=== PATIENT | male | born 1945 | race Caucasian/White ===

== ENCOUNTER → 2023-12-10 11:57 | Outpatient (REF) | payer MEDICARE, SELFPAY ==
[2023-12-10 12:35] LABS: Hematocrit 34.8 % (39.0-52.0); Hemoglobin 11.9 g/dL (13.0-18.0); Mean Corp Hgb Conc. 34.2 g/dL (33.0-37.0); Mean Corpuscular Hgb 30.6 pg (27.0-31.0); Mean Corpuscular Volume 89.5 fL (80.0-94.0); Mean Platelet Volume 10.6 fL (7.4-10.4); Platelet Count 222 10^3/uL (130-400); Red Blood Cell Count 3.89 10^6/uL (4.70-6.10); Red Cell Dist. Width 13.1 % (11.5-14.5)
[2023-12-10 13:08] LABS: ALT (SGPT) 31 U/L (0-50); AST (SGOT) 32 U/L (17-59); Albumin 3.3 g/dl (3.5-5.0); Alkaline Phosphatase 66 U/L (38-126); Blood Urea Nitrogen 19 mg/dl (9-20); Calcium 8.9 mg/dl (8.4-10.2); Carbon Dioxide 27 mmol/L (22-30); Chloride 104 mmol/L (98-107); Glucose 99 mg/dl (70-99); HDL Cholesterol 46 mg/dl; LDL Cholesterol, Calculated 56 mg/dl; Potassium 4.3 mmol/L (3.5-5.1); Sodium 137 mmol/L (135-145); Total Bilirubin 0.5 mg/dl (0.2-1.3); Total Cholesterol 113 mg/dl (50-199); Total Protein 5.9 g/dl (6.3-8.2); Triglyceride 57 mg/dl (10-149); Very Low Density Lipoprotein 11 mg/dl (0-30); eGFR > 60.00
[2023-12-10 13:20] LABS: Glycohemoglobin (HgbA1c) 5.7 % (4.0-5.6)
[2023-12-10 13:37] LABS: TSH 2.48 uIU/ml (0.47-4.68)
== END ==
LOC: OLABP 11:57
PROVIDERS: ATTENDING PHYSICIAN Internal Medicine
DX: I48.92 Unspecified atrial flutter (principal); F03.90 Unspecified dementia, unspecified severity, without behavioral disturbance, psychotic disturbance, mood disturbance, and anxiety; I10 Essential (primary) hypertension; E78.5 Hyperlipidemia, unspecified; R73.01 Impaired fasting glucose
CPT/HCPCS: 36415; 80053; 80061; 83036; 84443; 85027

== ENCOUNTER → 2024-03-10 10:59 | Outpatient (REF) | payer MEDICARE, SELFPAY ==
[2024-03-10 11:48] LABS: Hematocrit 37.2 % (39.0-52.0); Hemoglobin 12.2 g/dL (13.0-18.0); Mean Corp Hgb Conc. 32.8 g/dL (33.0-37.0); Mean Corpuscular Hgb 30.5 pg (27.0-31.0); Mean Platelet Volume 10.5 fL (7.4-10.4); Platelet Count 218 10^3/uL (130-400); Red Cell Dist. Width 13.1 % (11.5-14.5); White Blood Cell Count 5.3 10^3/uL (4.8-10.8)
== END ==
LOC: OLABP 10:59
PROVIDERS: ATTENDING PHYSICIAN Family Medicine
DX: E78.00 Pure hypercholesterolemia, unspecified (principal); E55.9 Vitamin D deficiency, unspecified; G30.1 Alzheimer's disease with late onset; R73.01 Impaired fasting glucose; F02.80 Dementia in other diseases classified elsewhere, unspecified severity, without behavioral disturbance, psychotic disturbance, mood disturbance, and anxiety; C61 Malignant neoplasm of prostate; I10 Essential (primary) hypertension; D64.9 Anemia, unspecified
CPT/HCPCS: 36415; 85027

== ENCOUNTER → 2024-04-07 09:40 | Outpatient (REF) | payer MEDICARE, SELFPAY ==
[2024-04-07 14:21] LABS: % Basophils 1.8 % (0-2); % Eosinophils 11.4 % (0-6); % Immature Granulocytes 0.2 % (0-0.5); % Lymphocytes 32.7 % (20.5-51.1); % Monocytes 13.9 % (1.7-9.3); Absolute Basophils 0.1 10^3/uL (0-0.2); Absolute Eosinophils 0.5 10^3/uL (0-0.7); Absolute Lymphocytes 1.4 10^3/uL (1.2-3.4); Absolute Monocytes 0.6 10^3/uL (0.1-0.6); Absolute Neutrophils 1.8 10^3/uL (1.4-6.5); Hematocrit 34.4 % (39.0-52.0); Hemoglobin 11.6 g/dL (13.0-18.0); Mean Corp Hgb Conc. 33.7 g/dL (33.0-37.0); Mean Corpuscular Hgb 31.3 pg (27.0-31.0); Mean Corpuscular Volume 92.7 fL (80.0-94.0); Mean Platelet Volume 10.5 fL (7.4-10.4); Nucleated Red Blood Cells % 0 % (-); Platelet Count 222 10^3/uL (130-400); Red Blood Cell Count 3.71 10^6/uL (4.70-6.10); Red Cell Dist. Width 13.7 % (11.5-14.5); White Blood Cell Count 4.4 10^3/uL (4.8-10.8)
[2024-04-07 14:33] LABS: ALT (SGPT) 20 U/L (0-50); AST (SGOT) 25 U/L (17-59); Albumin 3.4 g/dl (3.5-5.0); Alkaline Phosphatase 57 U/L (38-126); Blood Urea Nitrogen 18 mg/dl (9-20); Calcium 8.7 mg/dl (8.4-10.2); Carbon Dioxide 26 mmol/L (22-30); Chloride 107 mmol/L (98-107); Glucose 129 mg/dl (70-99); Sodium 139 mmol/L (135-145); Total Bilirubin 0.4 mg/dl (0.2-1.3); Total Protein 5.9 g/dl (6.3-8.2); eGFR > 60.00
[2024-04-07 14:35] LABS: C-Reactive Protein < 5.00 mg/L (0.0-10.00)
[2024-04-07 14:52] LABS: Vitamin D, 25-OH*** 37.1 ng/mL (30-80)
[2024-04-07 15:06] LABS: PSA, Total - Diagnostic 4.11 ng/ml (0.0-4.0)
[2024-04-07 15:28] LABS: Potassium 4.2 mmol/L (3.5-5.1)
[2024-04-07 15:51] LABS: Erythrocyte Sed Rate 12 mm/hour (0-20)
[2024-04-07 16:23] LABS: Vitamin B12 399 pg/ml (239-931)
[2024-04-09 15:58] LABS: Lyme Antibody Screen, EIA Presump. Positive (Negative); Rheumatoid Agglutinin Less Than 10 IU (<10 IU)
[2024-04-10 01:35] LABS: ANA, IgG Reflex to HEp-2 None Detected (None Detected)
== END ==
LOC: OLABPG 09:40
PROVIDERS: ATTENDING PHYSICIAN Family Medicine
DX: E55.9 Vitamin D deficiency, unspecified (principal); C61 Malignant neoplasm of prostate; E53.8 Deficiency of other specified B group vitamins
CPT/HCPCS: 80053; 82306; 82607; 84153; 85025; 85652; 86038; 86140; 86430; 86617; 86618

== ENCOUNTER → 2024-04-10 16:47 | Outpatient (REF) | payer MEDICARE, SELFPAY | LOC: RAD 16:47 | PROVIDERS: ATTENDING PHYSICIAN Family Medicine | DX: R06.2 Wheezing (principal); M54.50 Low back pain, unspecified; C61 Malignant neoplasm of prostate; M25.511 Pain in right shoulder | CPT/HCPCS: 71046; 72110; 73030 ==

== ENCOUNTER → 2024-07-13 12:08 | Outpatient (REF) | payer MEDICARE, SELFPAY | LOC: OLABPG 12:08 | PROVIDERS: ATTENDING PHYSICIAN Family Medicine | DX: R36.9 Urethral discharge, unspecified (principal) | CPT/HCPCS: 87086; 87491; 87591 ==

== ENCOUNTER 2024-07-30 15:50 | Observation (INO) | payer MEDICARE, SELFPAY ==
[2024-07-30 12:26] VITALS: BP 153/52
--- NOTE | 2024-07-30 12:34 | ED.GENMED ---
History of Present Illness
<Tony Franklin PA-C - Last Filed: 07/30/24 15:07>
General
Chief Complaint: Change in Mental Status
Source: patient
Exam Limitations: none
Time Seen by Provider: 07/30/24 12:27
History of Present Illness
History of Present Illness:
78-year-old male with history of dementia from nursing facility presents from nursing facility with complaints of change of cognitive baseline. He seems more confused than usual. Seems more weak than usual. Patient cannot provide any valuable
history. Were told he was somewhat combative at the facility. No other complaints
Past History
<OTONIEL Sanchez Last Filed: 07/30/24 15:07>
Past History
ED Past Medical History: HTN, Hypercholesterolemia and Other (Kidney stones, Kidney lesion)
ED Past Surgical History: None
Social History
Tobacco: Former smoker
Alcohol: Occasional
Drug: None
Personal:
Living: with family
Employment: Retired
Family History
Family History: Other (Noncontributory)
Phy Exam
<OTONIEL Sanchez Last Filed: 07/30/24 15:07>
Physical Exam
Physical Exam:
General: Well-appearing male no acute respiratory distress
HEENT: Normocephalic atraumatic mucous moist face is symmetric
Heart: Regular rate and rhythm no murmurs
Lungs: Clear no wheeze
Abdomen is soft nontender nondistended
Neurologic exam: Alert and oriented to person only follows commands symmetric this to both legs. No drift on exam to the upper extremities.
Extremities: No cyanosis or edema
Skin: Warm no rash
Course
<OTONIEL Sanchez Last Filed: 07/30/24 15:07>
Orders/Labs/Results
Orders:
Orders
07/30/24 12:33
CR Chest - 2 Views Urgent
Comment:
Reason For Exam: weakness
07/30/24 12:42
COVID-19 Antigen Urgent
Source: Nasal Swab
Complete Blood Count/With Diff Urgent
Urinalysis Reflex To Culture Urgent
Date Specimen was Collected: 07/30/24
Time Specimen was Collected: 12:40
Influenza A+B Rapid Molecular Urgent
[facility]YR[facility] Source: Nasal Swab
Specimen Description:
07/30/24 13:04
CT Head W/o Iv Contrast Urgent
Comment:
Reason For Exam: confusion
07/30/24 13:24
Electrocardiogram (*1) Urgent
Reason for Study: Chest Pain
EKG- Treatment ONCE
07/30/24 13:30
Comprehensive Metabolic Panel Urgent
Troponin I Urgent
07/30/24 15:01
0.9% Sodium Chloride 1000 ml [Nss] 1,000 ml IV BOLUS
Abnormal Lab Results
07/30/24 07/30/24
12:42 13:30
RBC 4.40 L 10^6/uL
(4.70-6.10)
Hct 38.4 L %
(39.0-52.0)
Absolute Neuts (auto) 6.9 H 10^3/uL
(1.4-6.5)
Absolute Lymphs (auto) 0.9 L 10^3/uL
(1.2-3.4)
Neutrophils % 81.0 H %
(42.2-75.2)
Lymphocytes % 10.6 L %
(20.5-51.1)
Glucose 118 H mg/dl
(70-99)
Urine Ketones 3+ A
(Negative)
Urine Urobilinogen 3+ A
(Neg - 1+)
07/30/24 12:42
07/30/24 13:30
Vital Signs
Initial and Last Documented VS:
Initial Vital Signs
Temp Pulse Resp Pulse Ox
99.7 F 98 16 94
07/30/24 12:17 07/30/24 12:17 07/30/24 12:17 07/30/24 12:17
Last Documented Vital Signs
Temp Pulse Resp BP Pulse Ox
99.7 F 95 19 116/66 95
07/30/24 12:17 07/30/24 13:45 07/30/24 13:45 07/30/24 13:00 07/30/24 13:45
<Jean-Paul Moore MD - Last Filed: 07/30/24 13:49>
Orders/Labs/Results
Orders:
Orders
07/30/24 12:33
CR Chest - 2 Views Urgent
Comment:
Reason For Exam: weakness
07/30/24 12:42
COVID-19 Antigen Urgent
Source: Nasal Swab
Complete Blood Count/With Diff Urgent
Urinalysis Reflex To Culture Urgent
Date Specimen was Collected: 07/30/24
Time Specimen was Collected: 12:40
Influenza A+B Rapid Molecular Urgent
TYRONE Source: Nasal Swab
Specimen Description:
07/30/24 13:04
CT Head W/o Iv Contrast Urgent
Comment:
Reason For Exam: confusion
07/30/24 13:24
Electrocardiogram (*1) Urgent
Reason for Study: Chest Pain
EKG- Treatment ONCE
07/30/24 13:30
Comprehensive Metabolic Panel Urgent
Troponin I Urgent
07/30/24 15:01
0.9% Sodium Chloride 1000 ml [Nss] 1,000 ml IV BOLUS
Abnormal Lab Results
07/30/24 07/30/24
12:42 13:30
RBC 4.40 L 10^6/uL
(4.70-6.10)
Hct 38.4 L %
(39.0-52.0)
Absolute Neuts (auto) 6.9 H 10^3/uL
(1.4-6.5)
Absolute Lymphs (auto) 0.9 L 10^3/uL
(1.2-3.4)
Neutrophils % 81.0 H %
(42.2-75.2)
Lymphocytes % 10.6 L %
(20.5-51.1)
Glucose 118 H mg/dl
(70-99)
Urine Ketones 3+ A
(Negative)
Urine Urobilinogen 3+ A
(Neg - 1+)
07/30/24 12:42
07/30/24 13:30
Vital Signs
Initial and Last Documented VS:
Initial Vital Signs
Temp Pulse Resp Pulse Ox
99.7 F 98 16 94
07/30/24 12:17 07/30/24 12:17 07/30/24 12:17 07/30/24 12:17
Last Documented Vital Signs
Temp Pulse Resp BP Pulse Ox
99.7 F 95 19 116/66 95
07/30/24 12:17 07/30/24 13:45 07/30/24 13:45 07/30/24 13:00 07/30/24 13:45
<Tony Franklin PA-C - Last Filed: 07/30/24 15:07>
MDM/Problems Addressed
Differential Diagnosis Includes:
Patient with confusion and increased weakness.
Differential could include electrolyte abnormality versus anemia versus infectious source such as UTI COVID or flu. COVID and flu test are pending chest x-ray pending. Will obtain straight cath urine.
There is no unilateral deficit to suggest CVA.
<Tony Franklin PA-C - Last Filed: 07/30/24 15:07>
*Critical Care Note
Total Time (30-74mins, 75-104mins- exclusive of procedures): Not Applicable
<Tony Franklin PA-C - Last Filed: 07/30/24 15:07>
Update Note
Update Note:
Workup here reviewed and demonstrates normal CT. COVID and flu negative. There are ketones in the urine but no sign of infection. Chest x-ray clear. Discussed with emergency room attending as well as the daughter who is a nurse practitioner over
the telephone. Patient is not himself. Is been weak and confused. Could be dehydrated. Will order fluids. Will keep in hospital for further evaluation
ED Attending Note
<Tony Franklin PA-C - Last Filed: 07/30/24 15:07>
-
Portions of this chart may have been created with voice recognition software.� Occasional wrong word or��sound alike� substitutions may have occurred due to the inherent limitations of voice recognition software.
<Jean-Paul Moore MD - Last Filed: 07/30/24 13:49>
ED Attending Note
Patient seen and examined by attending physician: Yes
I performed the substantive portion of visit, reviewed & personally made and approve the management plan that is documented in note by myself or GENARO.: Yes
ED Attending Note:
Patient apparently was in his room and there been care issues or concerns recently. Sleeping more than usual. Decreased p.o. intake both food and liquids. Some change in mental status. Patient is in a dementia unit.
Patient has no complaints. He is unsure why he is here currently.
On exam patient is nontoxic. He is elderly and frail. He is quiet but interactive. He knows his name. He is nonfocal. He is warm and dry. Perfusing well. Lungs clear and equal. Heart regular rate and rhythm. Abdomen nontender. Grossly
nonfocal.
Workup including etiology for mental status change. UTI infection electrolyte issue medications central neurologic issue. If all stable we will have to address and decide on management both based on his decreased p.o. intake along with his care at
the facility.
Discharge Plan
Departure
Patient Disposition: Admit
Date of Disposition: 07/30/24
Time of Disposition: 15:07
Admit to: Telemetry
Presentation/result/management discussed w/ accepting MD/DO: Hospitalist
Discharge Problem:
Altered mental status
Prescriptions:
No Action
atorvastatin 20 MG tablet
20 mg PO HS
acetaminophen 325 MG tablet
650 mg PO Q6HPRN PRN (Reason: mild pain/fever >101)
metoprolol succinate 25 MG tablet extended release 24 hr
25 mg PO DAILY
lidocaine 4 % Adhesive Patch,Medicated
1 patch TOPICAL DAILY
acetaminophen 500 mg Tablet
500 mg PO BID
escitalopram oxalate 20 mg Tablet
20 mg PO DAILY
clonazepam 0.125 mg Tablet,Disintegrating
0.125 mg PO BID
memantine 10 mg Tablet
10 mg PO DAILY
memantine 5 mg Tablet
5 mg PO QPM
rivastigmine 4.6 mg/24 hour Patch 24 Hour
1 patch TRANSDERMAL DAILY
loratadine 10 mg Capsule
10 mg PO DAILY
Systane Complete 0.6 % Drops
1 drp BOTH EYES TID
guaifenesin [Mucinex] 600 mg Tablet Extended Release 12hr
600 mg PO BIDPRN PRN (Reason: cough/congestion)
psyllium husk [Metamucil] 0.4 gram Capsule
0.4 g PO DAILY
Referrals:
Jonathon Verdugo Jr., DO [Family Provider] -
Interventions
Interventions:
*Risk Screen - Suicide Last Done: 07/30/24 12:17
*General Assessment Last Done: 07/30/24 12:17
*Neglect/Abuse Screening Last Done: 07/30/24 12:17
ED- Fall Risk Assessment Last Done: 07/30/24 12:17
*ED COVID-19 Vaccine History Last Done: 07/30/24 12:17
ED- Neurological Assessment Last Done: 07/30/24 12:17
ED- Cardiac Assessment Last Done: 07/30/24 12:17
Discharge Date and Time
Print Language: ROMANIAN
[2024-07-30 12:59] LABS: % Basophils 0.7 % (0-2); % Eosinophils 0.2 % (0-6); % Immature Granulocytes 0.4 % (0-0.5); % Lymphocytes 10.6 % (20.5-51.1); % Monocytes 7.1 % (1.7-9.3); Absolute Basophils 0.1 10^3/uL (0-0.2); Absolute Lymphocytes 0.9 10^3/uL (1.2-3.4); Absolute Monocytes 0.6 10^3/uL (0.1-0.6); Absolute Neutrophils 6.9 10^3/uL (1.4-6.5); Hematocrit 38.4 % (39.0-52.0); Hemoglobin 13.2 g/dL (13.0-18.0); Mean Corp Hgb Conc. 34.4 g/dL (33.0-37.0); Mean Corpuscular Volume 87.3 fL (80.0-94.0); Mean Platelet Volume 9.8 fL (7.4-10.4); Nucleated Red Blood Cells % 0 % (-); Platelet Count 239 10^3/uL (130-400); Red Cell Dist. Width 12.6 % (11.5-14.5); White Blood Cell Count 8.5 10^3/uL (4.8-10.8)
[2024-07-30 13:00] VITALS: BP 116/66
[2024-07-30 13:19] LABS: COVID-19 Antigen Negative (Negative)
[2024-07-30 13:24] LABS: Urine Albumin Negative (Neg - Trace); Urine Bilirubin Negative (Negative); Urine Character Clear (Clear); Urine Color Yellow; Urine Glucose Negative (Negative); Urine Ketone 3+ (Negative); Urine Leukocyte Negative (Negative); Urine Nitrite Negative (Negative); Urine Occult Blood Negative (Negative); Urine Urobilinogen 3+ (Neg - 1+)
[2024-07-30 13:52] LABS: ALT (SGPT) 13 U/L (0-50); AST (SGOT) 20 U/L (17-59); Albumin 3.7 g/dl (3.5-5.0); Alkaline Phosphatase 80 U/L (38-126); Blood Urea Nitrogen 16 mg/dl (9-20); Calcium 8.6 mg/dl (8.4-10.2); Carbon Dioxide 24 mmol/L (22-30); Chloride 103 mmol/L (98-107); Glucose 118 mg/dl (70-99); Potassium 4.2 mmol/L (3.5-5.1); Sodium 140 mmol/L (135-145); Total Bilirubin 0.7 mg/dl (0.2-1.3); Total Protein 6.5 g/dl (6.3-8.2); eGFR > 60.00
[2024-07-30 14:03] LABS: Troponin I < 0.012 ng/ml
--- NOTE | 2024-07-30 15:10 | HPS.HSE ---
Family Physician
-
Family Physician: Jonathon Verdugo Jr.
Chief Complaint
-
weakness
increased confusion
History of Present Illness
HPI: 78-year-old male with history of dementia from nursing facility, HTN, HLD; p/w change in MS/ more confused than usual, and increased in weakness.
He cannot provide history due to underlying dementia.
at bedside denied other symptoms.
Medical History
Past Medical History
Past Medical History: Reports Other
Additional Past Medical History:
dementia from nursing facility,
HTN,
HLD
Past Surgical History: Reports None
Social History
Unable to obtain full social history at this time due to: Dementia
Living: [facility]
Family History
Family History: Not pertinent
Allergies / Home Medications
Allergies reflects when Allergies were last updated in [employer].
Home Medications with original date entered in [employer]
Allergy/Medication List:
Allergies
Allergy/AdvReac Type Severity Reaction Status Date / Time
aspirin Allergy Unknown Verified 07/30/24 12:29
NSAIDS (Non-Steroidal Allergy Unknown Verified 07/30/24 12:29
Anti-Inflamma
Home Medications
atorvastatin 20 mg tablet 20 mg PO HS High cholesterol 02/22/12
acetaminophen 325 mg tablet 650 mg PO Q6HPRN PRN mild pain/fever >101 07/28/21
metoprolol succinate 25 mg tablet,extended release 24 hr 25 mg PO DAILY Blood pressure 07/28/21
acetaminophen 500 mg tablet 500 mg PO BID 07/30/24
clonazepam 0.125 mg disintegrating tablet 0.125 mg PO BID 07/30/24
escitalopram oxalate 20 mg tablet 20 mg PO DAILY 07/30/24
guaifenesin 600 mg tablet, extended release 12 hr (Mucinex) 600 mg PO BIDPRN PRN cough/congestion 07/30/24
lidocaine 4 % topical patch 1 patch topical DAILY right shoulder 07/30/24
loratadine 10 mg capsule 10 mg PO DAILY 07/30/24
memantine 10 mg tablet 10 mg PO DAILY 07/30/24
memantine 5 mg tablet 5 mg PO QPM 07/30/24
propylene glycol 0.6 % eye drops (Systane Complete) 1 drp BOTH EYES TID 07/30/24
psyllium husk 0.4 gram capsule (Metamucil) 0.4 g PO DAILY 07/30/24
rivastigmine 4.6 mg/24 hour transdermal patch 1 patch transdermal DAILY 07/30/24
Review of Systems
-
Neurological: Reports Weakness
Physical Exam
Vital Signs
Vital Signs
Temp Pulse Resp BP Pulse Ox
37.6 C 95 19 116/66 95
07/30/24 12:17 07/30/24 13:45 07/30/24 13:45 07/30/24 13:00 07/30/24 13:45
Physical Exam
General: Well Developed, Well Nourished, No Apparent Distress, Comfortable and Conversant
HEENT: NormoCephalic, Moist mucous membranes and Atraumatic
Respiratory: Clear and Non Labored Respirations; No Accessory Resp Muscle Use
Cardiac: S1/S2 and Regular Rhythm; No Murmur or Rub
GI: Soft, Non Tender, Non Distended and Normal Bowel Sounds; No Organomegaly
Rectal: Deferred by Provider
Musculoskeletal: No Clubbing, No Cyanosis and No Edema
Skin: No Rash
Neuro: Awake; No AO x 3
Psych: Calm and Apparent Dementia
Laboratory Results
-
07/30/24 12:42
07/30/24 13:30
Laboratory Results
Total Bilirubin 0.7 mg/dl (0.2-1.3) 07/30/24 13:30
AST 20 U/L (17-59) 07/30/24 13:30
ALT 13 U/L (0-50) 07/30/24 13:30
Alkaline Phosphatase 80 U/L (38-126) 07/30/24 13:30
Troponin I < 0.012 ng/ml 07/30/24 13:30
Data Reviewed
-
CT Scan: Report Reviewed by me
Lab Data: Labs Reviewed by me
Impression/Plan
-
HPI: 78-year-old male with history of dementia from nursing facility, HTN, HLD; p/w change in MS/ more confused than usual, and increased in weakness.
He cannot provide history due to underlying dementia.
at bedside denied other symptoms.
A/P:
# Change in MS, possible due to worsening underlying dementia
CT head unrevealing, no acute intracranial abnormality noted.
UA clean
COVID/Flu negative
PT OT eval and dispo planning per CM (family would like a different facility)
Other medical problems:
# Hypertension.
# Hyperlipidemia.
# History of melanoma.
DVT ppx: Lovenox SQ
DNR DNI, confirmed with at bedside
Obs status
[2024-07-30] MEDS: NSS 1000 IV (15:16)
[2024-07-30 18:02] VITALS: BP 138/69; BMI 29.5
[2024-07-30] MEDS: LOVENOX 40 MG SC (20:20)
[2024-07-30] MEDS: NAMENDA 5 MG PO (20:22)
[2024-07-30] MEDS: TYLENOL 500 MG PO (20:23)
[2024-07-30] MEDS: LIPITOR 20 MG PO (21:38)
[2024-07-30] MEDS: KLONOPIN 0.125 MG PO (21:38)
[2024-07-30] MEDS: REFRESH EYE DROPS (PF) 1 DROPS BOTH EYES (21:39)
[2024-07-30 23:08] VITALS: BP 138/82
[2024-07-31 07:07] VITALS: BP 141/80
[2024-07-31 07:55] VITALS: BP 141/80
--- NOTE | 2024-07-31 08:11 | VNURNOTE ---
Chart reviewed. Patient is current with [facility]. Will continue to follow hospital course and DC plans.
[2024-07-31 08:24] LABS: Hematocrit 34.7 % (39.0-52.0); Hemoglobin 12.1 g/dL (13.0-18.0); Mean Corp Hgb Conc. 34.9 g/dL (33.0-37.0); Mean Corpuscular Hgb 30.4 pg (27.0-31.0); Mean Corpuscular Volume 87.2 fL (80.0-94.0); Mean Platelet Volume 9.7 fL (7.4-10.4); Platelet Count 229 10^3/uL (130-400); Red Blood Cell Count 3.98 10^6/uL (4.70-6.10); Red Cell Dist. Width 12.9 % (11.5-14.5); White Blood Cell Count 5.1 10^3/uL (4.8-10.8)
[2024-07-31] MEDS: CLARITIN 10 MG PO (08:52)
[2024-07-31] MEDS: LEXAPRO 20 MG PO (08:53)
[2024-07-31] MEDS: NAMENDA 10 MG PO (08:53)
[2024-07-31] MEDS: EXELON PATCH 4.6 MG TRANSDERM (08:53)
[2024-07-31] MEDS: REFRESH EYE DROPS (PF) 1 DROPS BOTH EYES ×3 (08:54→21:33)
[2024-07-31] MEDS: TYLENOL 500 MG PO ×2 (08:54→20:15)
[2024-07-31] MEDS: LIDOCAINE 4% PATCH 1 PATCH TOPICAL (08:54)
[2024-07-31] MEDS: TOPROL XL 25 MG PO (08:54)
[2024-07-31] MEDS: METAMUCIL, KONSYL 1 PACKET PO (08:55)
[2024-07-31 09:15] LABS: Blood Urea Nitrogen 16 mg/dl (9-20); Calcium 8.6 mg/dl (8.4-10.2); Carbon Dioxide 26 mmol/L (22-30); Chloride 106 mmol/L (98-107); Estimated Creatinine Clearance 90 ml/min; Glucose 106 mg/dl (70-99); Potassium 4.1 mmol/L (3.5-5.1); Sodium 142 mmol/L (135-145); eGFR > 60.00
[2024-07-31 10:11] LABS: Hepatitis C Antibody Negative (Negative)
--- NOTE | 2024-07-31 10:36 | W.PN.HOSP.TC ---
Addendum entered and electronically signed by Winter Hernandez MD 07/31/24 15:34:
PT recc SNF
Original Note:
Today's Communication/Plan
-
see A/P
Assessment / Plan
Assessment / Plan
HPI: 78-year-old male with history of dementia from nursing facility, HTN, HLD; p/w change in MS/ more confused than usual, and increased in weakness.
He cannot provide history due to underlying dementia.
at bedside denied other symptoms.
A/P:
# Change in MS, possible due to worsening underlying dementia
CT head unrevealing, no acute intracranial abnormality noted.
Check MRI Brain
UA clean, COVID/Flu negative
PT OT eval and dispo planning per CM (family would like a different facility)
Other medical problems:
# Hypertension.
# Hyperlipidemia.
# History of melanoma.
DVT ppx: Lovenox SQ
DNR DNI, confirmed with at bedside
Obs status
DW Daughter on the phone
Anticipated Discharge: 24 - 48 hours
Subjective/Interval History
-
Date of Service: July 31, 2024
Objective Data
-
Labs:
Laboratory Results
07/31/24
08:16
WBC 5.1
Hgb 12.1 L
Hct 34.7 L
Plt Count 229
Sodium 142
Potassium 4.1
Chloride 106
Carbon Dioxide 26
BUN 16
Creatinine 0.8
Glucose 106 H
Calcium 8.6
Vital Signs:
Vital Signs
Temp Pulse Resp BP Pulse Ox
36.8 C 75 14 141/80 96
07/31/24 07:07 07/31/24 07:07 07/31/24 07:07 07/31/24 07:07 07/31/24 07:07
I&O
07/30/24 07/31/24 08/01/24
06:59 06:59 06:59
Intake Total
Balance
Review of Systems
-
Unable to obtain full review of systems at this time due to: Dementia
Physical Exam
-
General: Well Developed, Well Nourished, No Apparent Distress, Comfortable and Conversant; Negative Respiratory Distress
HEENT: Normocephalic, Atraumatic, Nose Appears Normal and Ears Appear Normal; Negative Oxygen
Respiratory: Clear to Auscultation and Non Labored Respirations; Negative Accessory Resp Muscle Use
Cardiac: Regular Rhythm and S1/S2
GI: Soft, Nontender, Nondistended and Normal Bowel Sounds
Skin: Warm and Dry
Neuro: Awake
Psych: Calm and Apparent Dementia
Data Reviewed
-
CT Scan: Report Reviewed by me
Labs: Labs Reviewed by me
[2024-07-31 12:00] VITALS: BP 140/81; PULSE 72; O2SAT 96
[2024-07-31 15:03] VITALS: BP 97/48
--- NOTE | 2024-07-31 15:08 | CM ---
Addendum entered by Cynthia Babb 07/31/24 16:58:
Spoke w/ daughter re [employer] form. Emailed copy per her request
Discussed [employer] and [employer] waiver if SNF cont. to be recommended
PT to re-evaluate tomorrow. Daughter will call case management to follow up
Original Note:
Pt from [facility]. Recently accepted at [facility]
Pt is current w/ [facility]- home PT
Spoke w/ daughter Snow re PT rec. of skilled rehab. Snow stated pt usually doesn't use any DME for walking
CM informed of OBS status and skilled rehab would be private pay
Snow requested for PT to re evaluate pt tomorrow to determine if home PT is appropriate.
CM notified [facility] PT/OT. Per Mckayla/, a note will be left for tomorrow for pt to be re-evaluated
Pt is w/ [employer]. CM to call before noon to follow up on waiver ( , option 2)
CM spoke w/ Valeria/[facility]. Per Valeria, nurse director will visit pt in hospital to assess. Valeria requested for updates tomorrow to be emailed to her ([email or web address])
CM faxed clinicals to facility.
Plan: Disposition will be determined based on PT recommendation after re-evaluation
CM will call Edgar tomorrow before noon re MSSP waiver
--- NOTE | 2024-07-31 15:35 | CM ---
Left VM for daughter re d/c plan and to discuss possibility of skilled rehab and offer [employer] participating facilities and options for skilled facilities.
Await TCB.
[2024-07-31] MEDS: NAMENDA 5 MG PO (18:39)
[2024-07-31] MEDS: LOVENOX 40 MG SC (18:39)
[2024-07-31] MEDS: KLONOPIN 0.125 MG PO (21:29)
[2024-07-31] MEDS: LIPITOR 20 MG PO (21:29)
[2024-07-31 23:14] VITALS: BP 137/77
[2024-08-01 07:35] VITALS: BP 134/88
[2024-08-01] MEDS: TYLENOL 500 MG PO ×2 (08:21→20:10)
[2024-08-01] MEDS: CLARITIN 10 MG PO (08:23)
[2024-08-01] MEDS: LEXAPRO 20 MG PO (08:23)
[2024-08-01] MEDS: TOPROL XL 25 MG PO (08:24)
[2024-08-01] MEDS: EXELON PATCH 4.6 MG TRANSDERM (08:24)
[2024-08-01] MEDS: REFRESH EYE DROPS (PF) 1 DROPS BOTH EYES ×3 (08:24→22:11)
[2024-08-01] MEDS: LIDOCAINE 4% PATCH 1 PATCH TOPICAL (08:24)
[2024-08-01] MEDS: METAMUCIL, KONSYL 1 PACKET PO (08:25)
[2024-08-01] MEDS: NAMENDA 10 MG PO (08:25)
--- NOTE | 2024-08-01 09:12 | W.PN.HOSP.TC ---
Today's Communication/Plan
-
see A/P
Assessment / Plan
Assessment / Plan
HPI: 78-year-old male with history of dementia from nursing facility, HTN, HLD; p/w change in MS/ more confused than usual, and increased in weakness.
He cannot provide history due to underlying dementia.
at bedside denied other symptoms.
A/P:
# Change in MS, possible due to worsening underlying dementia
CT head unrevealing, no acute intracranial abnormality noted.
MRI Brain also unrevealing
UA clean, COVID/Flu negative
PT OT eval and dispo planning per CM (family would like a different facility)
Other medical problems:
# Hypertension.
# Hyperlipidemia.
# History of melanoma.
DVT ppx: Lovenox SQ
DNR DNI, confirmed with at bedside
Obs status
DW daughter on the phone
Anticipated Discharge: 24 - 48 hours
Subjective/Interval History
-
Date of Service: August 01, 2024
Objective Data
-
Vital Signs:
Vital Signs
Temp Pulse Resp BP Pulse Ox
36.8 C 68 16 134/88 98
08/01/24 07:35 08/01/24 07:35 08/01/24 07:35 08/01/24 07:35 08/01/24 07:35
I&O
07/31/24 08/01/24 08/02/24
06:59 06:59 05:59
Intake Total 60 / 60 60 / 60
Balance 60 / 60 60 / 60
Review of Systems
-
Unable to obtain full review of systems at this time due to: Dementia
Physical Exam
-
General: Well Developed, Well Nourished, No Apparent Distress, Comfortable and Conversant; Negative Respiratory Distress
HEENT: Normocephalic, Atraumatic, Nose Appears Normal and Ears Appear Normal; Negative Oxygen
Respiratory: Clear to Auscultation and Non Labored Respirations; Negative Accessory Resp Muscle Use
Cardiac: Regular Rhythm and S1/S2
GI: Soft, Nontender, Nondistended and Normal Bowel Sounds
Skin: Warm and Dry
Neuro: Awake
Psych: Calm and Apparent Dementia
Data Reviewed
-
CT Scan: Report Reviewed by me
Labs: Labs Reviewed by me
--- NOTE | 2024-08-01 10:19 | CM ---
CM spoke with daughter via phone; Daughter reported that patient was accepted @ [facility]
PT will re-evaluate @ 1PM today with present
Discharge anticipated 24-48 hours
[2024-08-01 15:03] VITALS: BP 123/61
[2024-08-01] MEDS: LOVENOX 40 MG SC (18:12)
[2024-08-01] MEDS: NAMENDA 5 MG PO (18:12)
[2024-08-01] MEDS: KLONOPIN 0.125 MG PO (22:11)
[2024-08-01] MEDS: LIPITOR 20 MG PO (22:11)
[2024-08-02 07:54] VITALS: BP 118/58
--- NOTE | 2024-08-02 08:45 | W.PN.HOSP.TC ---
Today's Communication/Plan
-
see A/P
Dispo planning
Assessment / Plan
Assessment / Plan
HPI: 78-year-old male with history of dementia from nursing facility, HTN, HLD; p/w change in MS/ more confused than usual, and increased in weakness.
He cannot provide history due to underlying dementia.
at bedside denied other symptoms.
A/P:
# Change in MS, likely due to worsening underlying dementia
CT head unrevealing, no acute intracranial abnormality noted.
MRI brain also unrevealing
UA clean, COVID/Flu negative
Cont CRITICAL CARE REGISTERED NURSE clonazepam HS only, NOT BID. Daughter informed of change and is agreeable.
PT OT eval and dispo planning per CM (family would like a different facility)
Other medical problems:
# Hypertension.
# Hyperlipidemia.
# History of melanoma.
DVT ppx: Lovenox SQ
DNR DNI, confirmed with at bedside
Obs status
Anticipated Discharge: Within 24 hours
Subjective/Interval History
-
Date of Service: August 02, 2024
Objective Data
-
Vital Signs:
Vital Signs
Temp Pulse Resp BP Pulse Ox
36.6 C 72 18 118/58 98
08/02/24 07:54 08/02/24 07:54 08/02/24 07:54 08/02/24 07:54 08/02/24 07:54
I&O
08/01/24 08/02/24 08/03/24
07:59 06:59 06:59
Intake Total
Balance
Review of Systems
-
Unable to obtain full review of systems at this time due to: Dementia
Physical Exam
-
General: Well Developed, Well Nourished, No Apparent Distress, Comfortable and Conversant; Negative Respiratory Distress
HEENT: Normocephalic, Atraumatic, Nose Appears Normal and Ears Appear Normal; Negative Oxygen
Respiratory: Clear to Auscultation and Non Labored Respirations; Negative Accessory Resp Muscle Use
Cardiac: Regular Rhythm and S1/S2
GI: Soft, Nontender, Nondistended and Normal Bowel Sounds
Skin: Warm and Dry
Neuro: Awake
Psych: Calm and Apparent Dementia
[2024-08-02] MEDS: EXELON PATCH 4.6 MG TRANSDERM (08:50)
[2024-08-02] MEDS: REFRESH EYE DROPS (PF) 1 DROPS BOTH EYES ×3 (08:51→23:10)
[2024-08-02] MEDS: TYLENOL 500 MG PO ×2 (08:51→21:03)
[2024-08-02] MEDS: LEXAPRO 20 MG PO (08:51)
[2024-08-02] MEDS: LIDOCAINE 4% PATCH 1 PATCH TOPICAL (08:52)
[2024-08-02] MEDS: TOPROL XL 25 MG PO (08:52)
[2024-08-02] MEDS: METAMUCIL, KONSYL 1 PACKET PO (08:53)
[2024-08-02] MEDS: NAMENDA 10 MG PO (08:53)
[2024-08-02 16:33] VITALS: BP 120/59
[2024-08-02] MEDS: NAMENDA 5 MG PO (18:25)
[2024-08-02] MEDS: LOVENOX 40 MG SC (18:26)
[2024-08-02 23:04] VITALS: BP 118/59
[2024-08-02] MEDS: KLONOPIN 0.125 MG PO (23:09)
[2024-08-02] MEDS: LIPITOR 20 MG PO (23:10)
[2024-08-03 07:00] VITALS: BP 123/63
[2024-08-03] MEDS: TOPROL XL 25 MG PO (08:33)
[2024-08-03] MEDS: TYLENOL 500 MG PO ×2 (08:34→22:52)
[2024-08-03] MEDS: LEXAPRO 20 MG PO (08:34)
[2024-08-03] MEDS: REFRESH EYE DROPS (PF) 1 DROPS BOTH EYES ×3 (08:34→22:53)
[2024-08-03] MEDS: NAMENDA 10 MG PO ×2 (08:34→17:01)
[2024-08-03] MEDS: LIDOCAINE 4% PATCH 1 PATCH TOPICAL (08:35)
[2024-08-03] MEDS: METAMUCIL, KONSYL 1 PACKET PO (08:35)
[2024-08-03] MEDS: EXELON PATCH 4.6 MG TRANSDERM (08:35)
[2024-08-03 10:43] LABS: Magnesium 1.9 mg/dl (1.6-2.3)
[2024-08-03 14:27] VITALS: BP 129/61; PULSE 69; O2SAT 98
[2024-08-03 14:50] VITALS: BP 127/66
--- NOTE | 2024-08-03 14:50 | W.PN.HOSP.TC ---
Today's Communication/Plan
-
Rpt EKG
Discharge when [facility] can take him
Assessment / Plan
Assessment / Plan
78-year-old with dementia brought in because of confusion and weakness
CVS: S1-S2 normal
Chest: CTA B/L
Abdomen: Soft, NT / Bowel sounds present
Extremities: No edema
WINDOW INSTALLATION SUBCONTRACTOR: Non focal exam, apparent Dementia
# TME
CT and MRI unrevealing of any acute reasons
MRI with suspicion of cerebral amyloid angiopathy similar to prior
Underlying dementia: Rivastigmine and memantine
Patient's states that his confusion started when he became more lethargic after he got the COVID-vaccine booster. This could likely be the reason.
Urinalysis unremarkable
Chest x-ray without any infection
COVID screening negative
Klonopin nighttime
She feels that he is almost back to his baseline. She also mentions that when he is in the hospital he does get confused. She is hoping that memory care unit will come and evaluate him and he can go there.
# Hypertension-metoprolol
# EKG with prolonged QTc- Normal Mag. Repeat
# Hyperlipidemia-continue atorvastatin
# History of melanoma
# Depression-continue Lexapro
# DVT prophylaxis-Lovenox
# DNR
D/W Case management
D/W at bed side
Anticipated Discharge: Within 24 hours
Subjective/Interval History
-
Date of Service: August 03, 2024
Objective Data
-
Vital Signs:
Vital Signs
Temp Pulse Resp BP Pulse Ox
98.0 F 79 16 123/63 98
08/03/24 07:00 08/03/24 07:00 08/03/24 07:00 08/03/24 07:00 08/03/24 08:35
I&O
08/02/24 08/03/24 08/04/24
06:59 06:59 06:59
Intake Total 120 / 120
Balance 120 / 120
--- NOTE | 2024-08-03 14:57 | CM ---
CM spoke w/ Valeria/[facility] re d/c plan
Per PT/OT, pt is appropriate to d/c to [facility] w/ no skilled need as he has improved
Per Valeria, the assessment of pt is still needed as nurse director hasn't completed this yet. Nurse director has to now be present at the facility due to the state visiting. Per Valeria, she and nurse director have to figure out a way to get assessment
done and may consider video call as director just need to 'lay eyes on him' to make sure he continues to be appropriate. Per Valeria, documents are still pending to be received by spouse.
CM faxed updated PT/OT notes to facility
[facility]

Plan: D/c to [facility]
[2024-08-03] MEDS: LOVENOX 40 MG SC (17:01)
[2024-08-03] MEDS: NAMENDA 5 MG PO (17:04)
[2024-08-03 22:51] VITALS: BP 110/59
[2024-08-03] MEDS: KLONOPIN 0.125 MG PO (22:52)
[2024-08-03] MEDS: LIPITOR 20 MG PO (22:53)
[2024-08-04 07:42] VITALS: BP 131/82
[2024-08-04] MEDS: LIDOCAINE 4% PATCH 1 PATCH TOPICAL (08:42)
[2024-08-04] MEDS: EXELON PATCH 4.6 MG TRANSDERM (08:42)
[2024-08-04] MEDS: LEXAPRO 20 MG PO (08:42)
[2024-08-04] MEDS: TYLENOL 500 MG PO (08:42)
[2024-08-04] MEDS: METAMUCIL, KONSYL 1 PACKET PO (08:42)
[2024-08-04] MEDS: TOPROL XL 25 MG PO (08:42)
[2024-08-04] MEDS: NAMENDA 10 MG PO (08:42)
[2024-08-04] MEDS: REFRESH EYE DROPS (PF) 1 DROPS BOTH EYES (08:43)
--- NOTE | 2024-08-04 10:34 | W.PN.HOSP.TC ---
Today's Communication/Plan
-
Discharge - medically stable
Assessment / Plan
Assessment / Plan
78-year-old with dementia brought in because of confusion and weakness
CVS: S1-S2 normal
Chest: CTA B/L
Abdomen: Soft, NT / Bowel sounds present
Extremities: No edema
ELECTRICAL INSTRUMENT REPAIRER: Non focal exam, apparent Dementia
# TME
CT and MRI unrevealing of any acute reasons
MRI with suspicion of cerebral amyloid angiopathy similar to prior
Underlying dementia: Rivastigmine and memantine
Patient's states that his confusion started when he became more lethargic after he got the COVID-vaccine booster. This could likely be the reason.
Urinalysis unremarkable
Chest x-ray without any infection
COVID screening negative
Klonopin nighttime only
She feels that he is almost back to his baseline. She also mentions that when he is in the hospital he does get confused. She is hoping that memory care unit will come and evaluate him and he can go there.
# Hypertension-metoprolol
# EKG with prolonged QTc- Normal Mag. Repeat normal
# Hyperlipidemia-continue atorvastatin
# History of melanoma
# Depression-continue Lexapro
# DVT prophylaxis-Lovenox
# DNR
D/W Case management
Anticipated Discharge: Today
Subjective/Interval History
-
Date of Service: August 04, 2024
Objective Data
-
Vital Signs:
Vital Signs
Temp Pulse Resp BP Pulse Ox
98.6 F 64 17 131/82 98
08/04/24 07:42 08/04/24 07:42 08/04/24 07:42 08/04/24 07:42 08/04/24 07:42
I&O
08/03/24 08/04/24 08/05/24
06:59 06:59 06:59
Intake Total 120 / 120 720 / 720
Balance 120 / 120 720 / 720
--- NOTE | 2024-08-04 10:39 | W.DS.TRANS ---
Addendum entered and electronically signed by Buddy Rossi MD 08/04/24 13:33:
Dictation- [id number]
Original Note:
DC Summary - [employer]
-
Discharge Instructions:
Discharge Diagnosis/Procedures TME
Dementia
Hypertension
Hyperlipidemia
Depression
Diet As tolerated
Activity As tolerated,With assistance
Driving Restrictions No driving
Instructions:
Stand-Alone Forms:
Changes to Home Medications: Yes
Discharge Medications:
DC Medications w/original date entered in [facility]
atorvastatin 20 mg tablet 20 mg PO HS High cholesterol 02/22/12
metoprolol succinate 25 mg tablet,extended release 24 hr 25 mg PO DAILY Blood pressure 07/28/21
acetaminophen 500 mg tablet 500 mg PO BID Pain 07/30/24
escitalopram oxalate 20 mg tablet 20 mg PO DAILY Depression 07/30/24
guaifenesin 600 mg tablet, extended release 12 hr (Mucinex) 600 mg PO BIDPRN PRN cough/congestion 07/30/24
lidocaine 4 % topical patch 1 patch topical DAILY right shoulder 07/30/24
memantine 10 mg tablet 10 mg PO DAILY Neurological Condition 07/30/24
memantine 5 mg tablet 5 mg PO QPM Neurological Condition 07/30/24
propylene glycol 0.6 % eye drops (Systane Complete) 1 drp BOTH EYES TID Eye Condition 07/30/24
psyllium husk 0.4 gram capsule (Metamucil) 0.4 g PO DAILY Constipation 07/30/24
rivastigmine 4.6 mg/24 hour transdermal patch 1 patch transdermal DAILY Neurological Condition 07/30/24
acetaminophen 325 mg tablet 650 mg (2 x 325 mg) PO Q6HPRN PRN pain #0 tabs 08/04/24
Clonazepam 0.5 mg tablet 0.125 mg (1/4 x 0.5 mg) PO HS anxiety #4 tabs 08/04/24
Home Medication Changes
Klonopin dose changed to daily
Pending Results: No
--- NOTE | 2024-08-04 12:02 | CM ---
Addendum entered by Cynthia Babb 08/04/24 12:40:
Pt seen bedside w/ . Updated on time of transport: 2:30/3 pm
Pt current w/ [facility] PT, pt and spouse made aware [place] is out of service area and will discontinue, pt and spouse understood this
Per spouse, [facility] has in home rehab that can be arranged if they want to continue with PT.
PAM made [facility] liaison aware
Arti/[facility] made aware transport time
Original Note:
Spoke w/ Arti, Nurse director/[facility] who confirmed assessment completed today as she was able to visit pt at
Arti confirmed pt can admit today to facility. She was provided med list from nurse while visiting pt.
Arti requested paper scripts for some medications, hospitalist made aware.
embossing clerk will fax scripts once available
Pt will need ambulance transport- dementia, impaired safety awareness
Transport forms provided to vulcanized fiber unit operator, will await transport time
[facility]- [place]

Plan: [facility] via ambulance
--- NOTE | 2024-08-04 12:42 | W.PN.UPDATE ---
Update Note
Progress Note Update
discharge place needed scripts printed for all OTC meds
Including this total time of discharge did take more than 30 in
--- NOTE | 2024-08-04 14:49 | PTCARENOTE ---
While getting routine vitals prior to discharge, patient refusing temperature be taken. Swatted this RN's hands away. Temperature not obtained.
[2024-08-04 14:50] VITALS: BP 116/61
== END 2024-08-04 15:18 | disposition home or self-care (01) ==
LOC: 4 WEST ACU 15:50
PROVIDERS: Physician Assistant; ADMITTING PHYSICIAN Internal Medicine; ATTENDING PHYSICIAN Hospitalist; EMERGENCY PHYSICIAN Emergency Medicine; FAMILY PHYSICIAN Family Medicine
DX: F03.93 Unspecified dementia, unspecified severity, with mood disturbance (principal); G92.8 Other toxic encephalopathy; F32.A Depression, unspecified; R53.1 Weakness; E78.00 Pure hypercholesterolemia, unspecified; J98.11 Atelectasis; R94.31 Abnormal electrocardiogram [ECG] [EKG]; I10 Essential (primary) hypertension; R82.4 Acetonuria; J32.9 Chronic sinusitis, unspecified; I67.82 Cerebral ischemia; G31.9 Degenerative disease of nervous system, unspecified; Z87.442 Personal history of urinary calculi; Z88.6 Allergy status to analgesic agent; Z66 Do not resuscitate; Z85.820 Personal history of malignant melanoma of skin; Z87.891 Personal history of nicotine dependence; Z11.52 Encounter for screening for COVID-19
CPT/HCPCS: 51701; 70450; 70551; 71046; 80048; 80053; 81003; 83735; 84484; 85025; 85027; 86803; 87502; 87811; 93005; 96360; 97116; 97163; 97166; 99285; G0378

== ENCOUNTER → 2024-11-09 11:00 | Outpatient (REF) | payer MEDICARE, SELFPAY ==
[2024-11-09 12:02] LABS: % Basophils 1.3 % (0-2); % Eosinophils 2.9 % (0-6); % Immature Granulocytes 0.3 % (0-0.5); % Lymphocytes 17.4 % (20.5-51.1); % Monocytes 13.2 % (1.7-9.3); % Neutrophils 64.9 % (42.2-75.2); Absolute Basophils 0.1 10^3/uL (0-0.2); Absolute Eosinophils 0.2 10^3/uL (0-0.7); Absolute Lymphocytes 1.2 10^3/uL (1.2-3.4); Absolute Monocytes 0.9 10^3/uL (0.1-0.6); Absolute Neutrophils 4.5 10^3/uL (1.4-6.5); Hematocrit 41.1 % (39.0-52.0); Hemoglobin 13.5 g/dL (13.0-18.0); Mean Corp Hgb Conc. 32.8 g/dL (33.0-37.0); Mean Corpuscular Hgb 30.1 pg (27.0-31.0); Mean Corpuscular Volume 91.5 fL (80.0-94.0); Mean Platelet Volume 10.5 fL (7.4-10.4); Nucleated Red Blood Cells % 0 % (-); Platelet Count 261 10^3/uL (130-400); Red Blood Cell Count 4.49 10^6/uL (4.70-6.10); Red Cell Dist. Width 13.2 % (11.5-14.5); White Blood Cell Count 6.9 10^3/uL (4.8-10.8)
[2024-11-09 12:25] LABS: Glycohemoglobin (HgbA1c) 5.6 % (4.0-5.6)
[2024-11-09 12:51] LABS: ALT (SGPT) 12 U/L (0-50); AST (SGOT) 20 U/L (17-59); Albumin 4.1 g/dl (3.5-5.0); Alkaline Phosphatase 73 U/L (38-126); Blood Urea Nitrogen 19 mg/dl (9-20); Calcium 9.4 mg/dl (8.4-10.2); Carbon Dioxide 30 mmol/L (22-30); Chloride 103 mmol/L (98-107); Glucose 88 mg/dl (70-99); HDL Cholesterol 57 mg/dl; LDL Cholesterol, Calculated 62 mg/dl; Potassium 4.1 mmol/L (3.5-5.1); Sodium 140 mmol/L (135-145); Total Bilirubin 0.8 mg/dl (0.2-1.3); Total Cholesterol 136 mg/dl (50-199); Total Protein 6.9 g/dl (6.3-8.2); Triglyceride 85 mg/dl (10-149); Very Low Density Lipoprotein 17 mg/dl (0-30); eGFR > 60.00
[2024-11-09 21:26] LABS: Uric Acid 4.4 mg/dl (3.5-8.5)
[2024-11-09 22:54] LABS: TSH Reflex To Free T4 1.27 uIU/ml (0.47-4.68)
== END ==
LOC: RAD 11:00
PROVIDERS: ATTENDING PHYSICIAN Family Medicine
DX: D64.9 Anemia, unspecified (principal); R73.01 Impaired fasting glucose; E78.00 Pure hypercholesterolemia, unspecified; Z13.29 Encounter for screening for other suspected endocrine disorder; M79.671 Pain in right foot
CPT/HCPCS: 36415; 73630; 80053; 80061; 82728; 83036; 84443; 84550; 85025